=== PATIENT | female | born 1990 | race African-American/Black ===

== ENCOUNTER 2018-12-18 15:23 | Emergency (ER) | payer SELFPAY ==
[~2018-12-18] VITALS: Ht 165.1 cm; Wt 117.0 kg
[2018-12-19 00:40] VITALS: BP 121/72
== END 2018-12-19 01:00 | disposition home or self-care (01) ==
LOC: ER 15:23
DX: R05 Cough (principal)
CPT/HCPCS: 71045; 81025; 93005; 99283